=== PATIENT | male | born 1965 | race Caucasian/White ===

== ENCOUNTER 2021-01-16 11:05 | Emergency (ER) | payer OTHER ==
[~2021-01-16] VITALS: Ht 175.3 cm; Wt 108.9 kg
== END 2021-01-16 15:24 | disposition home or self-care (01) ==
LOC: ER1 11:05
DX: U07.1 COVID-19 (principal); J44.9 Chronic obstructive pulmonary disease, unspecified
CPT/HCPCS: 99284; M0239

== ENCOUNTER 2022-02-21 05:34 | Emergency (ER) | payer OTHER ==
[2022-02-21] MEDS ORDERED: NAPROSYN500 MG PO (06:40)
== END 2022-02-21 07:10 | disposition home or self-care (01) ==
LOC: ER1 05:34
DX: M25.511 Pain in right shoulder (principal); J44.9 Chronic obstructive pulmonary disease, unspecified
CPT/HCPCS: 73030; 96372; 99283; J1885